=== PATIENT | female | born 1975 | race Asian ===

== ENCOUNTER 2016-06-26 20:48 | Emergency (ER) | payer OTHER ==
[~2016-06-26] VITALS: Ht 152.4 cm; Wt 60.0 kg
[2016-06-26 20:56] VITALS: BP 118/76
[2016-06-26] MEDS ORDERED: BACITRACIN OINT 500U/GM, 15 GM TP ONE (21:30)
[2016-06-26] MEDS ORDERED: BACITRACIN ZINC OINT 500U/GM, 0.9 GM ONE ×2 (21:51)
== END 2016-06-26 22:29 | disposition home or self-care (01) ==
LOC: ED 22:23
DX: S93.491A Sprain of other ligament of right ankle, initial encounter (principal); Z88.0 Allergy status to penicillin; W10.9XXA Fall (on) (from) unspecified stairs and steps, initial encounter; Y93.89 Activity, other specified; Y99.8 Other external cause status; Y92.89 Other specified places as the place of occurrence of the external cause
CPT/HCPCS: 99284

== ENCOUNTER → 2017-08-07 | Outpatient (CLI) | payer OTHER ==
[2017-08-07 20:24] LABS: CHOL/HDL RATIO 2.3; LDL/HDL RATIO 0.9 (0.5-3.0)
== END ==
LOC: LAB 07:02
PROVIDERS: ATTEND Family Medicine
DX: Z13.220 Encounter for screening for lipoid disorders (principal)
CPT/HCPCS: 36415; 80061